=== PATIENT | male | born 1970 | race African-American/Black ===

== ENCOUNTER 2024-08-04 08:50 | Outpatient (CLI) | payer MEDICARE | END 2024-08-04 08:51 | disposition home or self-care (01) | LOC: CSHCT 08:50 | PROVIDERS: ATTEND Family Medicine | DX: Z12.2 Encounter for screening for malignant neoplasm of respiratory organs (principal); F17.210 Nicotine dependence, cigarettes, uncomplicated | CPT/HCPCS: 71271 ==